=== PATIENT | female | born 1965 | race Caucasian/White ===

== ENCOUNTER 2019-08-04 11:25 | Inpatient (IN) ==
[2019-08-04 12:19] LABS: Hematocrit 35.1 % (35.3-44.9); Hemoglobin 11.2 g/dL (11.5-15.4); Mean Corpuscular HGB Conc 31.9 g/dL (31.6-35.5); Mean Corpuscular Hemoglobin 28.8 pg (28.0-33.3); Mean Corpuscular Volume 90.2 fL (83.0-100.0); Mean Platelet Volume 8.5 fL (9.4-12.4); Platelet Count 258 K/mcL (140-400); Red Blood Count 3.89 M/mcL (3.82-4.97); Red Cell Distribution Width 13.2 % (11.5-14.5); White Blood Count 9.5 K/mcL (4.3-11.1)
[2019-08-04 12:43] LABS: BUN/Creatinine Ratio 25 (6-26); Blood Urea Nitrogen 17 mg/dL (6-20); Calcium 8.7 mg/dL (8.6-10.3); Carbon Dioxide 23 mEq/L (23-29); Chloride 99 mEq/L (98-107); Glucose 135 mg/dL (70-105); Osmolality,Calculated 284 (280-300); Potassium 3.4 mEq/L (3.5-5.1); Sodium 135 mEq/L (136-145); eGFR For African Americans > 60 (> 60); eGFR For Non-African Americans > 60 (> 60)
[2019-08-04] MEDS ORDERED: Piperacillin/Tazobactam 3.375 GM in 0.9 % Sodium Chloride Mini Bag 100 ML IVPB ONE (14:11)
[2019-08-04 14:40] LABS: C-Reactive Protein 182 mg/L (Less than 10)
[2019-08-04] MEDS ORDERED: Acetaminophen 325 MG TABLET PO PRN (14:50)
[2019-08-04] MEDS ORDERED: *HR* Promethazine 25 MG/ML VIAL IVP PRN (14:50)
[2019-08-04] MEDS ORDERED: Ondansetron 4 MG/2 ML VIAL IVP PRN (14:50)
[2019-08-04] MEDS ORDERED: MOM Conc 10 ML UD.LIQ PO PRN (14:50)
[2019-08-04] MEDS ORDERED: *HR* HYDROcodone/Acet 5/325 mg TABLET PO PRN (14:50)
[2019-08-04] MEDS ORDERED: Mag Hydrox/Al Hydrox/Simeth 30 ML UDC PO PRN (14:50)
[2019-08-04] MEDS ORDERED: Naloxone 0.4 MG/ML INJ IVP PRN (14:50)
[2019-08-04] MEDS ORDERED: D5% in Water 1,000 ML IVC PRN (14:53)
[2019-08-04] MEDS ORDERED: Dextrose Gel 15 GM/37.5 ML TUBE PO PRN ×2 (14:53)
[2019-08-04] MEDS ORDERED: *HR* Dextrose 50 % in Water (Syg) 50 ML SYRINGE IVP PRN (14:53)
[2019-08-04] MEDS ORDERED: Acetaminophen IV 1,000 MG/100 ML INFUS..BTL ONE (16:17)
[2019-08-04] MEDS ORDERED: Famotidine 20 MG/2 ML VIAL ONE (16:17)
[2019-08-04] MEDS ORDERED: Lidocaine -MPF 2% 2 ML VIAL ONE (16:21)
[2019-08-04] MEDS ORDERED: *HR* FentaNYL (PF) 100 MCG/2 ML VIAL ONE (16:25)
[2019-08-04] MEDS ORDERED: *HR* Midazolam HCl 2 MG/2 ML VIAL ONE (16:25)
[2019-08-04] MEDS ORDERED: Lidocaine 1% 20 ML MDV ONE (16:27)
[2019-08-04] MEDS: *HR* Heparin 5,000 UNIT/ML VIAL SQ SCH (18:20)
[2019-08-04] MEDS: Insulin LISPRO 300 UNITS/3 ML VIAL SQ SCH ×2 (18:40→20:52)
[2019-08-05] MEDS: *HR* Heparin 5,000 UNIT/ML VIAL SQ SCH ×4 (00:09→22:54)
[2019-08-05 01:44] LABS: Hematocrit 37.4 % (35.3-44.9); Hemoglobin 11.8 g/dL (11.5-15.4); Mean Corpuscular HGB Conc 31.6 g/dL (31.6-35.5); Mean Corpuscular Hemoglobin 28.2 pg (28.0-33.3); Mean Corpuscular Volume 89.5 fL (83.0-100.0); Mean Platelet Volume 8.5 fL (9.4-12.4); Platelet Count 244 K/mcL (140-400); Red Blood Count 4.18 M/mcL (3.82-4.97); Red Cell Distribution Width 13.2 % (11.5-14.5); White Blood Count 6.8 K/mcL (4.3-11.1)
[2019-08-05 02:11] LABS: Alanine Aminotransferase 9 Units/L (7-52); Albumin 3.1 g/dL (3.5-5.7); Albumin/Globulin Ratio 0.7 (1.1-2.2); Alkaline Phosphatase 132 Units/L (34-104); Aspartate Amino Transferase 14 Units/L (13-39); BUN/Creatinine Ratio 22 (6-26); Bilirubin,Total 0.4 mg/dL (0.3-1.0); Blood Urea Nitrogen 14 mg/dL (6-20); Calcium 8.7 mg/dL (8.6-10.3); Carbon Dioxide 23 mEq/L (23-29); Chloride 102 mEq/L (98-107); Globulin 4.4 g/dL (2.4-3.5); Glucose 95 mg/dL (70-105); Osmolality,Calculated 286 (280-300); Potassium 3.3 mEq/L (3.5-5.1); Sodium 138 mEq/L (136-145); Total Protein 7.5 g/dL (6.4-8.9); eGFR For African Americans > 60 (> 60); eGFR For Non-African Americans > 60 (> 60)
[2019-08-05] MEDS ORDERED: Sennosides 8.6 MG TABLET PO PRN (07:47)
[2019-08-05] MEDS ORDERED: Sucralfate 1 GM TABLET PO PRN (07:47)
[2019-08-05] MEDS ORDERED: Piperacillin/Tazobactam 3.375 GM in 0.9 % Sodium Chloride Mini Bag 100 ML IVPB ONE (09:00)
[2019-08-05] MEDS: Loratadine 10 MG TABLET PO SCH (09:00)
[2019-08-05] MEDS: Insulin DETEMIR 100 UNIT/ML X5UNITS SQ SCH ×2 (09:01→21:08)
[2019-08-05] MEDS: Piperacillin/Tazobactam 3.375 GM in 0.9 % Sodium Chloride Mini Bag 100 ML IVPB SCH ×2 (09:05→16:12)
[2019-08-05] MEDS: Insulin LISPRO 300 UNITS/3 ML VIAL SQ SCH ×4 (09:23→21:07)
[2019-08-05 11:33] LABS: Estimated Average Glucose 223 mg/dl
[2019-08-05] MEDS: *HR* OxyCODONE Immed Rel 5 MG TABLET PO PRN (14:03)
[2019-08-06] MEDS: Piperacillin/Tazobactam 3.375 GM in 0.9 % Sodium Chloride Mini Bag 100 ML IVPB SCH ×3 (00:23→16:30)
[2019-08-06 04:55] LABS: Basophils % 0.9 %; Eosinophils # 0.1 K/mcL (0.0-0.6); Hematocrit 32.4 % (35.3-44.9); Immature Granulocytes % 0.2 % (0-4); Lymphocytes # 1.6 K/mcL (0.6-4.6); Lymphocytes % 37.2 %; Mean Corpuscular HGB Conc 31.5 g/dL (31.6-35.5); Mean Corpuscular Hemoglobin 28.3 pg (28.0-33.3); Mean Corpuscular Volume 89.8 fL (83.0-100.0); Mean Platelet Volume 8.5 fL (9.4-12.4); Monocytes # 0.4 K/mcL (0.0-1.3); Monocytes % 8.5 %; Neutrophils # 2.2 K/mcL (1.6-8.9); Platelet Count 249 K/mcL (140-400); Red Blood Count 3.61 M/mcL (3.82-4.97); Red Cell Distribution Width 13.1 % (11.5-14.5); Segmented Neutrophils % 50.2 %; White Blood Count 4.4 K/mcL (4.3-11.1)
[2019-08-06 04:59] LABS: Hemoglobin 10.2 g/dL (11.5-15.4)
[2019-08-06 05:14] LABS: BUN/Creatinine Ratio 22 (6-26); Blood Urea Nitrogen 14 mg/dL (6-20); Calcium 8.6 mg/dL (8.6-10.3); Carbon Dioxide 28 mEq/L (23-29); Chloride 105 mEq/L (98-107); Glucose 131 mg/dL (70-105); Magnesium 1.7 mg/dL (1.6-2.6); Osmolality,Calculated 288 (280-300); Phosphorous 3.3 mg/dL (2.7-4.5); Potassium 3.6 mEq/L (3.5-5.1); Sodium 138 mEq/L (136-145); eGFR For African Americans > 60 (> 60); eGFR For Non-African Americans > 60 (> 60)
[2019-08-06 05:20] LABS: Platelet Estimate Normal (Normal)
[2019-08-06] MEDS: *HR* Heparin 5,000 UNIT/ML VIAL SQ SCH ×2 (07:59→16:29)
[2019-08-06] MEDS: Loratadine 10 MG TABLET PO SCH (08:00)
[2019-08-06] MEDS: Insulin LISPRO 300 UNITS/3 ML VIAL SQ SCH ×4 (08:04→20:49)
[2019-08-06] MEDS: Insulin DETEMIR 100 UNIT/ML X5UNITS SQ SCH ×2 (08:08→20:50)
[2019-08-07] MEDS: *HR* Heparin 5,000 UNIT/ML VIAL SQ SCH ×4 (00:21→23:18)
[2019-08-07] MEDS: Piperacillin/Tazobactam 3.375 GM in 0.9 % Sodium Chloride Mini Bag 100 ML IVPB SCH ×4 (00:21→23:36)
[2019-08-07] MEDS: Insulin LISPRO 300 UNITS/3 ML VIAL SQ SCH ×4 (08:35→23:17)
[2019-08-07] MEDS: Loratadine 10 MG TABLET PO SCH (08:36)
[2019-08-07] MEDS: Insulin DETEMIR 100 UNIT/ML X5UNITS SQ SCH ×2 (08:44→23:17)
[2019-08-07 10:00] LABS: BUN/Creatinine Ratio 21 (6-26); Blood Urea Nitrogen 13 mg/dL (6-20); Vancomycin,Trough 13 mcg/mL (5-10); eGFR For African Americans > 60 (> 60); eGFR For Non-African Americans > 60 (> 60)
[2019-08-07] MEDS ORDERED: Vancomycin 1 EACH in 0.9 % Sodium Chloride 250 ML IVPB SCH (10:45)
[2019-08-08] MEDS: *HR* Heparin 5,000 UNIT/ML VIAL SQ SCH ×3 (06:09→23:32)
[2019-08-08] MEDS: Piperacillin/Tazobactam 3.375 GM in 0.9 % Sodium Chloride Mini Bag 100 ML IVPB SCH (07:54)
[2019-08-08] MEDS: Insulin LISPRO 300 UNITS/3 ML VIAL SQ SCH ×4 (07:55→21:01)
[2019-08-08] MEDS: Loratadine 10 MG TABLET PO SCH (08:58)
[2019-08-08] MEDS: Insulin DETEMIR 100 UNIT/ML X5UNITS SQ SCH ×2 (08:59→21:01)
[2019-08-08] MEDS: *HR* OxyCODONE Immed Rel 5 MG TABLET PO PRN (09:50)
[2019-08-08] MEDS: metroNIDAZOLE 500 MG TABLET PO SCH ×2 (15:25→21:01)
[2019-08-09 04:53] LABS: BUN/Creatinine Ratio 22 (6-26); Blood Urea Nitrogen 15 mg/dL (6-20); Calcium 8.8 mg/dL (8.6-10.3); Carbon Dioxide 28 mEq/L (23-29); Chloride 107 mEq/L (98-107); Glucose 132 mg/dL (70-105); Magnesium 1.8 mg/dL (1.6-2.6); Osmolality,Calculated 293 (280-300); Potassium 3.8 mEq/L (3.5-5.1); Sodium 140 mEq/L (136-145); eGFR For African Americans > 60 (> 60); eGFR For Non-African Americans > 60 (> 60)
[2019-08-09] MEDS: *HR* Heparin 5,000 UNIT/ML VIAL SQ SCH (05:28)
[2019-08-09] MEDS: Insulin LISPRO 300 UNITS/3 ML VIAL SQ SCH ×2 (07:38→11:27)
[2019-08-09] MEDS: Insulin DETEMIR 100 UNIT/ML X5UNITS SQ SCH (07:39)
[2019-08-09] MEDS: metroNIDAZOLE 500 MG TABLET PO SCH (07:41)
[2019-08-09] MEDS: Loratadine 10 MG TABLET PO SCH (07:41)
[2019-08-09] MEDS ORDERED: Lidocaine -MPF 1% 5 ML AMPUL INFILT ONE (10:35)
[2019-08-09 10:57] VITALS: BP 141/76
[2019-08-09] MEDS ORDERED: Fluconazole 100 MG TABLET PO ONE (11:32)
[2019-08-09] MEDS ORDERED: Aminoglycoside Consult 1 EACH MC ONE (14:15)
== END 2019-08-09 14:16 | disposition home health service (06) | DRG 305 ==
LOC: 3ANU 11:25 → EMEROOARM 11:25 → 3ANU 15:36 → SUATTDRO 16:24
PROVIDERS: ADMIT Internal Medicine; ATTEND Internal Medicine